=== PATIENT | male | born 1960 | race Caucasian/White ===

== ENCOUNTER → 2019-08-25 | Outpatient (CLI) | payer MEDICARE, OTHER ==
--- NOTE | 2019-08-25 12:53 | Diagnostic Imaging Report ---
INDICATION: Cough and pneumonia. PA and lateral views of the chest were obtained. FINDINGS: The heart size is normal. There are patchy bilateral perihilar infiltrates left greater than right. There is no pleural effusion or pneumothorax. Mediastinum is unremarkable. IMPRESSION: Patchy bilateral perihilar infiltrates left greater than right suspect for early pneumonia. Recommend clinical correlation. Dictated by: Dictated on workstation # [id number]
== END ==
LOC: RAD 12:29
PROVIDERS: ATTEND Nurse Practitioner Family
DX: R91.8 Other nonspecific abnormal finding of lung field (principal); R05 Cough
CPT/HCPCS: 71046